=== PATIENT | female | born 1960 | race Two or more races ===

== ENCOUNTER 2024-10-07 21:45 | Emergency (ER) | payer MEDICAID, OTHER ==
[~2024-10-07] VITALS: Ht 172.7 cm; Wt 90.7 kg
[2024-10-07] MEDS ORDERED: HYDROCODONE/APAP 5/325MG TABLET ONE (22:29)
[2024-10-07] MEDS: HYDROCODONE/APAP 5/325MG TABLET PO ONE (22:32)
[2024-10-08] MEDS: IV NS 0.9% 1,000 ML BAG IV ONE
[2024-10-08] MEDS ORDERED: PROPOFOL 20 ML IV ONE (00:35)
[2024-10-08] MEDS: PROPOFOL 200 MG/20 ML VIAL IV ONE (01:05)
[2024-10-08 01:42] VITALS: BP 144/87; TEMP 98; O2SAT 97
== END 2024-10-08 01:42 | disposition home or self-care (01) ==
LOC: ER 21:46
DX: S43.015A Anterior dislocation of left humerus, initial encounter (principal); I10 Essential (primary) hypertension; W01.0XXA Fall on same level from slipping, tripping and stumbling without subsequent striking against object, initial encounter; Y92.480 Sidewalk as the place of occurrence of the external cause; Y93.01 Activity, walking, marching and hiking; Y99.8 Other external cause status
CPT/HCPCS: 99291; 23650; 96360; 99152; 73080; 73030 ×2; 73110; J2704; J7030; G0500